=== PATIENT | female | born 1965 | race Two or more races ===

== ENCOUNTER 2025-04-18 13:02 | Inpatient (IN) | payer MEDICAID, OTHER ==
[~2025-04-18] VITALS: Ht 165.1 cm; Wt 64.0 kg
--- NOTE | 2025-04-18 13:16 | ECG ---
[facility] Test Date: 2025-04-18 Test Time: 13:11:07 Pat Name: SANTOS AVILA Department: Room: 0280 Gender: F Special Librarian: ELOINA : 1965 Requested By: DONG SANDRA Order Number: [id number] Reading MD: Matthieu Benjamin Measurements Intervals [place] Rate: 80 P: 14 CT: 128 QRS: 27 QRSD: 80 T: 45 QT: 348 QTc: 402 Interpretive Statements Sinus rhythm Electronically Signed On 04-19-2025 13:55:40 PST by Matthieu Benjamin Please click the below link to view image of tracing.
[2025-04-18 13:43] LABS: Hematocrit 40.9 % (36.0-46.0); Hemoglobin 14.2 g/dL (12.2-16.2); Mean Corpuscular Hemoglobin 28.7 pg (28.0-32.0); Mean Corpuscular Volume 82.9 fL (80.0-100.0); Nucleated Red Blood Cells % 0.1 %
--- NOTE | 2025-04-18 13:48 | DVH ---
CHEST RADIOGRAPH Indication: cp Technique: Single frontal view of the chest was obtained Comparison: None FINDINGS: Lines and Tubes: None Lungs: No focal consolidation. Pleura: No effusion. No pneumothorax. Cardiomediastinal contours: Unremarkable Bones: No acute osseous abnormality. IMPRESSION: 1. No acute cardiopulmonary disease.
[2025-04-18] MEDS: NITROGLYCERIN 0.4 MG SL TAB SL ONE ×2 (13:50→13:57)
--- NOTE | 2025-04-18 13:51 | ED.PDOC ---
HPI Comments HPI: 60F presents to the ER w/ the c/c of right sided CP which is tender to touch. Pt reports on having the CP for 1 month and worsens w/ movement of the RUE. Denies any other symptoms at this time. Initial Vitals BP:217/104 Past Medical history: HTN-Stopped taking Meds Past Surgical history: Cholecystectomy Medications: Social History: Denies smoking, ETOH, and drug use. Allergies: NKDA HPI: Poor Historian. Right-sided chest wall pain radiating to the right shoulder. Pain with movement of right upper extremity. Tenderness to palpation on the right anterior chest wall and right shoulder. Denies any fall or trauma or injury. Pain is constant for at least one month. Patient has been taking ibuprofen for her pain. Denies any other associated symptoms. Patient is hypertensive here in the ED but states she stopped taking her blood pressure medications awhile ago. REVIEW OF SYSTEMS: CONSTITUTIONAL: Denies acute: fever, diaphoresis, chills, generalized weakness. HEAD: Denies acute: headache, photophobia Eyes: Denies acute: Double vision, vision loss, eye pain, eye discharge. EARS: Denies acute: tinnitus, hearing loss, ear discharge, ear pain, THROAT: Denies acute: sore throat, swelling, difficulty swallowing , pain with swallowing, change in voice. NECK: Denies acute: neck pain, neck swelling, stiff neck. HEART: Denies acute : palpitations, LUNGS: Denies acute: SOB, wheezing, cough, hemoptysis ABDOMEN: Denies acute: abdominal pain, Nausea, Vomiting, diarrhea, melena , hematemesis, hematochezia SKIN: Denies acute: rash, redness, lesions, itchiness. EXTREMITIES: Denies acute: calf pain, numbness, tingling, weakness, denies pain in extremity. Denies acute: Low back pain. Neuro: Denies acute: focal neurological deficit, motor or sensory focal neurological deficit, tremors, seizure like activity, confusion, dizziness, change in mental status, loss of bowel or bladder function, cauda equina like symptoms. : Denies acute: dysuria, hematuria, flank pain, increase in urinary frequency. PSYCH: Denies acute: hallucination, suicidal ideation, homicidal ideation. FEMALE: Denies acute: abnormal vaginal bleeding, foul odor, unusual discharge. PHYSICAL EXAM: General: ------moderate--acute distress, awake and alert. Head: normocephalic, atraumatic. No raccoon's eyes, no cope sign. Neck: supple, trachea is midline, no swelling. Throat: Normal phonation. Eyes:, no erythema, no purulent discharge, no proptosis, no icterus. Heart: regular rate, regular rhythm, no significant murmur appreciated. Lungs: no apparent respiratory distress, Able to speak in full sentences. No wheezing, no rhonchi, no crackles. No stridors Clear to auscultation bilaterally. Abdomen: non tender to palpation, non distended, soft, no guarding, no rebound, + bowel sounds. Neuro: Awake, Alert, oriented to name, self, situation, follows commands GCS=15. Speech is normal. Skin: no petechia, no purpura, no cyanosis, non-pale, not jaundice. Lower extremities: --no - Pitting edema no deformity, no focal swelling, no calf TTP. Makes eye contact. moves all four extremities. Face: no apparent facial droop. No CVA tenderness to percussion bilaterally. Ambulating in the ED independently. Ears: Normal appearing TM b/l, Stroke: finger to nose cerebellar testing is intact. No pronator drift. 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 No nystagmus. No nuchal rigidity, Kernig's sign, Brudzinski's sign, no meningeal signs. ED COURSE: DISCLAIMER: This medical document was created using an electronic medical record system with voice recognition software and computerized dictation system. Although this document has been carefully reviewed, there might still be some phonetic and typographical errors. Occasional wrong-word or "sound-alike" substitutions may have occurred due to the inherent limitations of voice recognition software. These areas are purely typographical due to imperfections of the software programs and do not reflect any compromise in the patient's medical care. Please read the chart carefully and recognize, using context, where these substitutions have occurred. Chief Complaint: Chest Pain Time Seen by MD: 13:50 Primary Care Provider: SUSAN Reviewed Notes: Nurses Notes, Medications, Allergies Allergies: Coded Allergies: NO KNOWN ALLERGIES (Unverified , 07/07/12) Home Meds No Active Prescriptions or Reported Meds Information Source: Patient Mode of Arrival: Ambulatory Was a procedure done? Was a procedure done?: No CP Differential Dx Differential Diagnosis: N/A Differential Diagnosis: Other (DDX include renal disease, thyroid disease, electrolyte abnormality, increased salt intake, medications non-compliance, undiagnosed HTN, Hypertensive crisis, hypertensive urgency., drug toxicity.) Differential Diagnosis: Other (Ddx include but not limitied to gastritis, musculoskeletal pain, radiculopathy, atypical chest pain, dissection, aneurysm, ACS, unstable angina, hiatal hernia, GERD, anxiety, costochondritis, PE, pneumothroax, neoplasm, cardiac ischemia, drug abuse, anemia.) X-Ray, Labs, Meds, VS Vital Signs Date Time Temp Pulse Resp B/P (MAP) Pulse Ox O2 Delivery O2 Flow Rate FiO2 04/18/25 14:22 109/89 04/18/25 14:20 77 109/89 04/18/25 14:15 109/89 (96) 04/18/25 14:14 74 04/18/25 14:03 97.5 74 14 217/104 (141) 97 97.5 04/18/25 13:50 217/104 04/18/25 13:30 Room Air* 0 21 04/18/25 13:11 80 04/18/25 13:10 98.1 70 15 197/113 98 98.1 Lab Test 04/18/25 14:16 04/18/25 13:17 Range/Units Troponin I High Sensitivity 47 *H 53 *H </=34 ng/L White Blood Count 5.8 4.4-10.8 10^3/uL Red Blood Count 4.94 4.0-5.20 10^6/uL Hemoglobin 14.2 12.2-16.2 g/dL Hematocrit 40.9 36.0-46.0 % Mean Corpuscular Volume 82.9 80.0-100.0 fL Mean Corpuscular Hemoglobin 28.7 28.0-32.0 pg Mean Corpuscular Hemoglobin Concent 34.6 32.0-36.0 g/dL Red Cell Distribution Width 13.6 11.8-14.3 % Platelet Count 265 140-450 10^3/uL Mean Platelet Volume 8.3 6.9-10.8 fL Neutrophils (%) (Auto) 69.5 37.0-80.0 % Lymphocytes (%) (Auto) 21.0 10.0-50.0 % Monocytes (%) (Auto) 5.0 0.0-12.0 % Eosinophils (%) (Auto) 3.8 0.0-7.0 % Basophils (%) (Auto) 0.7 0.0-2.0 % Neutrophils # (Auto) 4.0 1.6-8.6 10 ^3/uL Lymphocytes # (Auto) 1.2 0.4-5.4 10 ^3/uL Monocytes # (Auto) 0.3 0-1.3 10 ^3/uL Eosinophils # (Auto) 0.2 0-0.8 10 ^3/uL Basophils # (Auto) 0 0-0.2 10 ^3/uL Nucleated Red Blood Cells 0.1 % D-Dimer, Quantitative 0.40 0.0-0.49 mg/L FEU Sodium Level 139 136-145 mmol/L Potassium Level 4.3 3.5-5.1 mmol/L Chloride Level 104 98-107 mmol/L Carbon Dioxide Level 25 20-31 mmol/L Anion Gap 10 5-15 Blood Urea Nitrogen 14 9-23 mg/dL Creatinine 0.86 0.550-1.02 mg/dL Glomerular Filtration Rate Calc 76 >90 mL/min BUN/Creatinine Ratio 16.3 10.0-20.0 Serum Glucose 229 H 74-106 mg/dL Hemoglobin A1c 7.9 H <5.7 % A1C Calcium Level 11.2 H 8.7-10.4 mg/dL Total Bilirubin 0.6 0.2-1.0 mg/dL Aspartate Amino Transferase (AST) 29 13-40 U/L Alanine Aminotransferase (ALT) 34 7-40 U/L Alkaline Phosphatase 153 H 46-116 U/L Total Protein 7.5 5.7-8.2 g/dL Albumin 4.4 3.2-4.8 g/dL Triglycerides Level 216 H < 150 mg/dL Cholesterol Level 234 H < 200 mg/dL LDL Cholesterol 168 H < 100 mg/dL HDL Cholesterol 49 40-59 mg/dL Vitamin B12 Level 536 211-911 pg/mL Vitamin D 25-Hydroxy 29.0 L 30.0-100 ng/mL Thyroid Stimulating Hormone (TSH) 2.29 0.55-4.78 uIU/mL Current Medications Medications (Trade) Dose Ordered Sig/Jose Daniel Route Start Time Stop Time Status Last Admin Nitroglycerin (Ntrostat Sublingual) 0.4 mg ONCE ONCE SL 04/18/25 13:45 04/18/25 13:53 DC 04/18/25 13:50 Acetaminophen/ Hydrocodone Bitart (Pointblank 5/325MG Tab) 1 tab ONCE ONCE PO 04/18/25 14:15 04/18/25 14:16 DC 04/18/25 14:21 [place] [address] Ph: [phone] DIAGNOSTIC IMAGING Diagnostic Imaging Report : [id number] Signed PATIENT: SANTOS AVILA ACCT: [id number] UNIT: [id number] : 1965 LOC: ER ROOM / BED: / AGE / SEX: 60 / F ADM STATUS: REG ER SERVICE 1331 ORDERING PHYSICIAN: DONG SANDRA DO PROCEDURE(s): RSHD2 - R SHOULDER 2+ VIEW XRAY REASON: SHOULDER PAIN ORDER NUMBER(s): [id number], ACCESSION NUMBER(s): [id number] CLINICAL INDICATION: SHOULDER PAIN TECHNIQUE: 3 radiographic views of the right shoulder were obtained. Comparison: None FINDINGS/IMPRESSION: No fracture or dislocation. No radiopaque foreign bodies No soft tissue calcifications. ATED BY: KAREEN MCKAY Jr., DO DICTATED DATE/TIME: 04/18/251403 SIGNED BY: KAREEN MCKAY Jr., DO SIGNED DATE/TIME: 04/18/251403 CC: [address] [address] Ph: [phone] DIAGNOSTIC IMAGING Diagnostic Imaging Report : [id number] Signed PATIENT: SANTOS AVILA ACCT: [id number] UNIT: [id number] : 1965 LOC: ER ROOM / BED: / AGE / SEX: 60 / F ADM STATUS: REG ER SERVICE 1313 ORDERING PHYSICIAN: DONG SANDRA DO PROCEDURE(s): CXR1 - CHEST XRAY 1 VIEW REASON: cp ORDER NUMBER(s): [id number], ACCESSION NUMBER(s): [id number] CHEST RADIOGRAPH Indication: cp Technique: Single frontal view of the chest was obtained Comparison: None FINDINGS: Lines and Tubes: None Lungs: No focal consolidation. Pleura: No effusion. No pneumothorax. Cardiomediastinal contours: Unremarkable Bones: No acute osseous abnormality. IMPRESSION: 1. No acute cardiopulmonary disease. ATED BY: KAREEN MCKAY Jr., DO DICTATED DATE/TIME: 04/18/251344 SIGNED BY: KAREEN MCKAY Jr., SIGNED DATE/TIME: 04/18/251344 CC: [place] [address] Ph: [phone] DIAGNOSTIC IMAGING Diagnostic Imaging Report : [id number] Signed PATIENT: SANTOS AVILA ACCT: [id number] UNIT: [id number] : 1965 LOC: OVERFLOW ROOM / BED: [facility]ER / A AGE / SEX: 60 / F ADM STATUS: ADM IN SERVICE 1509 ORDERING PHYSICIAN: DONG SANDRA DO PROCEDURE(s): CX2CT - CHEST WITHOUT CONTRAST REASON: R CHEST WALL/SHOULDER PAIN ORDER NUMBER(s): [id number], ACCESSION NUMBER(s): [id number] EXAM: CT CHEST WITHOUT CONTRAST INDICATION: R CHEST WALL/SHOULDER PAIN TECHNIQUE: Noncontrast axial images of the chest have been obtained along with coronal and sagittal reformatted images. All CT scans at this facility use dose modulation, iterative reconstruction, and/or weight based dosing when appropriate to reduce radiation dose to as low as reasonably achievable. COMPARISON: XY CHEST XRAY 1 VIEW on DOS: 04/18/25 FINDINGS: LOWER NECK: Unremarkable LYMPH NODES/MEDIASTINUM: No abnormal lymph nodes by CT size criteria CARDIOVASCULAR: Normal cardiac size. No pericardial effusion. No aneurysmal dilatation of the great vessels. No significant coronary artery calcifications. UPPER ABDOMEN: Benign-appearing cysts of the liver with the largest measuring up to 7.2 cm. Imaging finding may be related to hepatic versus biliary cysts. Gallbladder is surgically absent. MUSCULOSKELETAL: No acute fracture or aggressive focal osseous lesion. CHEST WALL: Unremarkable. LUNG PARENCHYMA/PLEURAL SPACE: No pleural effusion or pneumothorax. No consolidation, suspicious focal airspace opacity, or suspicious nodules.benign calcific granulomas IMPRESSION: 1. No CT evidence of an acute intrathoracic process. tinnitus CT evidence of an acute rib fracture. No definitive visualized right shoulder effusion. 2. Benign-appearing cysts of the liver with the largest measuring up to 7.2 cm. Imaging finding may be related to hepatic versus biliary cysts. Consider further evaluation with nonemergent MRI of the liver if clinically indicated ATED BY: SHILO ESTES MD DICTATED DATE/TIME: 04/18/251610 SIGNED BY: SHILO ESTES MD SIGNED DATE/TIME: 04/18/251610 CC: Time of 1ST Reevaluation: 14:20 Reevaluation 1ST: Unchanged Patient Education/Counseling: Diagnosis, Treatment, Prognosis Family Education/Counseling: No Family Present Comments MDM: patient presented with the above HPI.---cardiac---workup was initiated. patient was found with the above mentioned diagnosis. the following medications were ordered: please refer to order lists of meds and tests obtained by myself Dr. Sandra. Patient ED course and VS have been stabilized. Patient has been reassessed in the ED and remained in a stable condition. Pertinent incidental findings were discussed with the patient and/or family. Patient/family voices understanding and is agreeable with plan. Patient has been observed in the ED adequate length of time to insure improvement/stability. Escalation of care considered: Consideration of escalation to observation or admission Presentation is more consistent with musculoskeletal like pain however patient's troponin is slightly elevated the setting of hypertensive crisis not on medicati ons. Patient was ADMITTED to the medicine team for further evaluation and treatment of their presentation. All the reports of any imaging studies that were ordered by myself were reviewed by myself. SEPSIS Sepsis Screen Date sepsis recognized/suspect: Apr 18, 2025 Time Sepsis recognized/suspect: 1310 Recent Procedure: No On Antibiotic Therapy: No Respiratory Rate >20: No Heart Rate >90: No Temp<36 C (96.8 F) or >38.3 C: No SBP <90 or MAP <65 mmHG: No New Acute Mental Status Change: No Is the patient on CPAP, BIPAP,: No Physician Orders Troponin-I Hs (04/18/25 16:13) Electrocardigram (04/18/25 16:13) Chest Xray 1 View (04/18/25 13:13) R Shoulder 2+ View Xray (04/18/25 13:31) Chest Without Contrast (04/18/25 15:09) Vital Signs Date Time Temp Pulse Resp B/P (MAP) Pulse Ox O2 Delivery O2 Flow Rate FiO2 04/18/25 14:22 109/89 04/18/25 14:20 77 109/89 04/18/25 14:15 109/89 (96) 04/18/25 14:14 74 04/18/25 14:03 97.5 74 14 217/104 (141) 97 97.5 04/18/25 13:50 217/104 04/18/25 13:30 Room Air* 0 21 04/18/25 13:11 80 04/18/25 13:10 98.1 70 15 197/113 98 98.1 Laboratory Tests Test 04/18/25 13:17 White Blood Count 5.8 10^3/uL (4.4-10.8) Medications Medications Dose Ordered Sig/Jose Daniel Route Start Time Stop Time Status Last Admin Dose Admin Acetaminophen/ Hydrocodone Bitart 1 tab ONCE ONCE PO 04/18/25 14:15 04/18/25 14:16 DC 04/18/25 14:21 Nitroglycerin 0.4 mg ONCE ONCE SL 04/18/25 13:45 04/18/25 13:53 DC 04/18/25 13:50 Departure 1 Departure Time of Disposition: 14:23 Impression: Primary Impression: Chest pain Additional Impressions: Hypertensive crisis Elevated troponin Disposition: ADMITTED INPATIENT Admit to: Tele Condition: Guarded e-Prescriptions No Active Prescriptions or Reported Meds Discharged With: Self Critical Care Note Critical Care Time?: Yes (35 min-critical care time only) Heart Score Heart Score: Heart Score Response (Comments) Value History Moderate Suspicious 1 EKG Normal 0 Age 45-64 1 Risk Factors 1 or 2 risk factors 1 Troponin 1-2 x's Normal limit 1 Total 4 I personally scribed for DONG SANDRA DO ([email or web address]) on 04/18/25 at 13:51. Electronically submitted by Martínez Troy ([email or web address]). I personally scribed for DONG SANDRA DO ([facility] on 04/18/25 at 14:44. Electronically submitted by Martínez Troy ([email or web address]). I personally scribed for DONG SANDRA DO ([facility] on 04/18/25 at 16:55. Electronically submitted by Martínez Troy ([email or web address]). DONG SANDRA DO Apr 18, 2025 13:51
[2025-04-18 13:57] LABS: Alanine Aminotransferase 34 U/L (7-40); Albumin 4.4 g/dL (3.2-4.8); Anion Gap 10 (5-15); BUN/Creatinine Ratio 16.3 (10.0-20.0); Bilirubin, Total 0.6 mg/dL (0.2-1.0); Blood Urea Nitrogen 14 mg/dL (9-23); Carbon Dioxide 25 mmol/L (20-31); Chloride 104 mmol/L (98-107); Potassium 4.3 mmol/L (3.5-5.1); Sodium 139 mmol/L (136-145); Total Protein 7.5 g/dL (5.7-8.2)
[2025-04-18 13:58] LABS: Alkaline Phosphatase 153 U/L (46-116); Calcium 11.2 mg/dL (8.7-10.4); Glucose 229 mg/dL (74-106)
--- NOTE | 2025-04-18 14:06 | DVH ---
CLINICAL INDICATION: SHOULDER PAIN TECHNIQUE: 3 radiographic views of the right shoulder were obtained. Comparison: None FINDINGS/IMPRESSION: No fracture or dislocation. No radiopaque foreign bodies No soft tissue calcifications.
[2025-04-18] MEDS: LABETALOL HCL 20 MG/4 ML VL IV ONE (14:20)
[2025-04-18] MEDS: HYDROcodone-ACET 5/325MG TAB PO ONE (14:21)
--- NOTE | 2025-04-18 16:03 | DVHHPRES ---
History of Present Illness Resident Creating Document: LUCIEN BENNETT RESIDENT History of Present Illness This is a 60-year-old female with past medical history of hypertension, type 2 diabetes, dyslipidemia, who presented to the ED with a chief complaint of acute chest pain. Patient reports that the chest pain is located in the right side of the chest radiating to the right shoulder with inability to abduct the right arm above 45 degree angle. Patient also reports associated shortness of breaths that started after the chest pain. Patient stated chest pain has been going on for the past month and that comes and goes even at rest. Patient rates the pain as 10/10 on the pain scale and described the as a pressure type of pain in the right side of the chest and occasionally burning sensation as well. Initial labs were grossly unremarkable except for troponins which were slightly elevated and blood glucose was elevated as well. EKG on admission showed normal sinus rhythm with no ST segment elevation or depression and no T-wave abnormalities. Chest x-ray was grossly unremarkable with no evidence of clear consolidations at this time. Right shoulder x-ray showed no evidence of fracture or dislocation at this time. Upon my examination, there is reproducible pain to palpation in the right side of the chest and inability to raise right arm against gravity. We will order echocardiogram and follow-up closely with the results. We will also order MRI of the right shoulder to rule out any possible rotator cuff tear/tendinopathy. Patient was started on a loading dose of aspirin, blood pressure medication with lisinopril 10 mg daily and sliding scale insulin for blood glucose control. Patient will be admitted for further assessment and management. Past medical history: Hypertension, type 2 diabetes, dyslipidemia Surgical history: Cholecystectomy Home medications: None, states she stopped all medications non time ago Social history: Denies smoking, alcohol intake or any drug consumption. Cardiovascular: HTN, hyperipidemia Endocrine: Diabetes Past Surgical History: Cholecystectomy Family History: None Smoke: No ALCOHOL: none Drugs: None Lives: with Family Review of Systems Constitutional: No: Fever, Chills, Sweats, Weakness, Malaise, Other Eyes: No: Pain, Vision change, Conjunctivae inflammation, Eyelid inflammation, Other, Redness ENT: No: Ear pain, Ear discharge, Nose pain, Nose discharge, Nose congestion, Mouth pain, Mouth swelling, Throat pain, Throat swelling, Other Respiratory: Shortness of breath, Pleuritic Pain; No: Cough, Dry, SOB with excertion, Wheezing, Hemoptysis, Sputum, Wheezing, Other Cardiovascular: Chest Pain (Right-sided chest pain and inability to elevate right shoulder.); No: Palpitations, Orthopnea, Paroxysmal Noc. Dyspnea, Edema, Lt Headedness, Other Gastrointestinal: No: Nausea, Vomiting, Abdominal Pain, Diarrhea, Constipation, Melena, Hematochezia, Other Genitourinary: No Dysuria, No Frequency, No Incontinence, No Hematuria, No Retention, No Other Musculoskeletal: other (Patient reports right-sided chest pain that is worse on palpation. Inability to raise right shoulder over 45 degree angle.); No: neck pain, shoulder pain, arm pain, back pain, hand pain, leg pain, foot pain Skin: No: Rash, Lesions, Jaundice, Bruising, Other Neurological: No: Weakness, Numbness, Incoordination, Change in speech, Confusion, Seizures, Other Allergies: Coded Allergies: NO KNOWN ALLERGIES (Unverified , 07/07/12) Medications Current Medications Medications Dose Ordered Sig/Jose Daniel Route Start Time Stop Time Status Last Admin Dose Admin Acetaminophen 650 mg Q6HP PRN PO 04/18/25 15:45 UNV Acetaminophen/ Hydrocodone Bitart 1 tab Q4HP PRN PO 04/18/25 15:45 UNV Enoxaparin Sodium 40 mg DAILY SC 04/19/25 10:00 UNV Aspirin 81 mg DAILY PO 04/19/25 10:00 UNV Pantoprazole Sodium 40 mg BID IV 04/18/25 22:00 UNV Sucralfate 1 gm TID PO 04/18/25 22:00 UNV Lisinopril 10 mg DAILY PO 04/19/25 10:00 UNV Exam Vital Signs Vital Signs Date Time Temp Pulse Resp B/P (MAP) Pulse Ox O2 Delivery O2 Flow Rate FiO2 04/18/25 14:22 109/89 04/18/25 14:20 77 04/18/25 14:03 97.5 14 97 97.5 04/18/25 13:30 Room Air* 0 21 General Appearance: Alert, Oriented X3, Cooperative, No acute distress HEENT: Atraumatic, PERRLA, EOMI, Mucous membr. moist/pink Respiratory: Clear to auscultation, Normal air movement Cardiovascular: Regular rate, Normal S1, Normal S2, No murmurs Abdominal: Normal bowel sounds, Soft, No tenderness, No hepatospenomegaly, No masses Extremities: No clubbing, No cyanosis, No edema, Normal pulses, No tenderness/swelling Skin: No rashes, No breakdown, No significant lesion Neuro: Normal gait, Normal speech, Strength at 5/5 X4 ext, Normal tone, Sensation intact, Cranial nerves 3-12 NL, Reflexes 2+ Psych/Mental Status: Mental status NL, Mood NL Labs/Xrays Labs Test 04/18/25 14:16 04/18/25 13:17 Range/Units Troponin I High Sensitivity 47 *H </=34 ng/L White Blood Count 5.8 4.4-10.8 10^3/uL Red Blood Count 4.94 4.0-5.20 10^6/uL Hemoglobin 14.2 12.2-16.2 g/dL Hematocrit 40.9 36.0-46.0 % Mean Corpuscular Volume 82.9 80.0-100.0 fL Mean Corpuscular Hemoglobin 28.7 28.0-32.0 pg Mean Corpuscular Hemoglobin Concent 34.6 32.0-36.0 g/dL Red Cell Distribution Width 13.6 11.8-14.3 % Platelet Count 265 140-450 10^3/uL Mean Platelet Volume 8.3 6.9-10.8 fL Neutrophils (%) (Auto) 69.5 37.0-80.0 % Lymphocytes (%) (Auto) 21.0 10.0-50.0 % Monocytes (%) (Auto) 5.0 0.0-12.0 % Eosinophils (%) (Auto) 3.8 0.0-7.0 % Basophils (%) (Auto) 0.7 0.0-2.0 % Neutrophils # (Auto) 4.0 1.6-8.6 10 ^3/uL Lymphocytes # (Auto) 1.2 0.4-5.4 10 ^3/uL Monocytes # (Auto) 0.3 0-1.3 10 ^3/uL Eosinophils # (Auto) 0.2 0-0.8 10 ^3/uL Basophils # (Auto) 0 0-0.2 10 ^3/uL Nucleated Red Blood Cells 0.1 % D-Dimer, Quantitative 0.40 0.0-0.49 mg/L FEU Sodium Level 139 136-145 mmol/L Potassium Level 4.3 3.5-5.1 mmol/L Chloride Level 104 98-107 mmol/L Carbon Dioxide Level 25 20-31 mmol/L Anion Gap 10 5-15 Blood Urea Nitrogen 14 9-23 mg/dL Creatinine 0.86 0.550-1.02 mg/dL Glomerular Filtration Rate Calc 76 >90 mL/min BUN/Creatinine Ratio 16.3 10.0-20.0 Serum Glucose 229 H 74-106 mg/dL Calcium Level 11.2 H 8.7-10.4 mg/dL Total Bilirubin 0.6 0.2-1.0 mg/dL Aspartate Amino Transferase (AST) 29 13-40 U/L Alanine Aminotransferase (ALT) 34 7-40 U/L Alkaline Phosphatase 153 H 46-116 U/L Total Protein 7.5 5.7-8.2 g/dL Albumin 4.4 3.2-4.8 g/dL SEPSIS Sepsis Screen Date sepsis recognized/suspect: Apr 18, 2025 Time Sepsis recognized/suspect: 1329 Recent Procedure: No On Antibiotic Therapy: No Respiratory Rate >20: No Heart Rate >90: No Temp<36 C (96.8 F) or >38.3 C: No SBP <90 or MAP <65 mmHG: No New Acute Mental Status Change: No Is the patient on CPAP, BIPAP,: No Physician Orders Troponin-I Hs (04/18/25 16:13) Electrocardigram (04/18/25 14:13) Electrocardigram (04/18/25 16:13) Chest Xray 1 View (04/18/25 13:13) R Shoulder 2+ View Xray (04/18/25 13:31) Chest Without Contrast (04/18/25 15:09) Admit (04/18/25 15:31) Code Status (04/18/25 15:31) Vital Signs .PER UNIT PROTOCOL (04/18/25 15:31) Review Orders With Adm.Md (04/18/25 15:31) Encourage Activity As Tolerate (04/18/25 15:31) Consistent Carb(Ccho)Diabetes (04/18/25 Dinner) Acetaminophen Tablet (Tylenol Tablet) (04/18/25 15:45) Notify Md Of Changes From Base (04/18/25 15:31) Advance Directive (04/18/25 15:31) Echo 2d Mode Cardiac Dop (04/18/25 15:31) Basic Metabolic Panel (04/19/25 04:00) Urinalysis (04/18/25 15:31) Complete Blood Count (04/19/25 04:00) Lipid Panel (04/18/25 15:31) Patient Condition (04/18/25 15:31) Allergies (04/18/25 15:31) Hydrocodone-Acet 5/325mg Tab ([place] 32 (04/18/25 15:45) Drug Screen (04/18/25 15:31) Hemoglobin A1c (04/18/25 15:31) Enoxaparin Sodium (Lovenox) (04/19/25 10:00) Aspirin Tablet (04/18/25 15:45) Aspirin Tablet (04/19/25 10:00) Pantoprazole (Protonix) (04/18/25 22:00) Sucralfate Tab (Carafate Tab) (04/18/25 22:00) Rt Shoulder Without (04/18/25 15:40) Lisinopril Tablet (Zestril Tablet) (04/18/25 15:45) Lisinopril Tablet (Zestril Tablet) (04/19/25 10:00) Thyroid Stimulating Hormone (04/18/25 15:43) Vitamin D, 25-Hydroxy (04/18/25 15:43) Vitamin B12 (04/18/25 15:43) Vital Signs Date Time Temp Pulse Resp B/P (MAP) Pulse Ox O2 Delivery O2 Flow Rate FiO2 04/18/25 14:22 109/89 04/18/25 14:20 77 109/89 04/18/25 14:15 109/89 (96) 04/18/25 14:14 74 04/18/25 14:03 97.5 74 14 217/104 (141) 97 97.5 04/18/25 13:50 217/104 04/18/25 13:30 Room Air* 0 21 04/18/25 13:11 80 04/18/25 13:10 98.1 70 15 197/113 98 98.1 Laboratory Tests Test 04/18/25 13:17 White Blood Count 5.8 10^3/uL (4.4-10.8) Medications Medications Dose Ordered Sig/Jose Daniel Route Start Time Stop Time Status Last Admin Dose Admin Acetaminophen/ Hydrocodone Bitart 1 tab ONCE ONCE PO 04/18/25 14:15 04/18/25 14:16 DC 04/18/25 14:21 1 TAB Nitroglycerin 0.4 mg ONCE ONCE SL 04/18/25 13:45 04/18/25 13:53 DC 04/18/25 13:50 0.4 MG Assessment/Plan Assessment/Plan Assessment/plan Hypertensive emergency Acute chest pain, R/O ACS Possible musculoskeletal type of pain NSTEMI likely type 2 likely due to above Uncontrolled type 2 diabetes mellitus Primary hypertension Dyslipidemia Acute on chronic GERD Plan -EKG showed normal sinus rhythm with no ST segment elevation or depression or T- waves abnormalities -troponins were slightly elevated -blood pressure on admission was over 200 systolic blood pressure. Currently controlled -start lisinopril 10 mg daily -ordered echocardiogram -right shoulder x-ray showing no evidence of dislocation or fracture at this time. -ordered MRI of the right shoulder to rule out possible rotator cuff tear/tendinopathy -started pantoprazole IV 40 mg b.i.d. -start Carafate 1 g t.i.d. -ordered hemoglobin A1c -ordered lipid panel. We will consider start statins depending on results. -start mild sliding scale insulin, we will consider starting Lantus depending on A1c levels Goals of care discussed with the patient at bedside, full code Plan discussed with Dr. Blanc Plan discussed with: Patient My Orders Orders - LUCIEN BENNETT RESIDENT Procedure Category Date Status Time Admit ADMIT 04/18/25 Transmitted 15:31 Code Status CODE 04/18/25 Transmitted 15:31 Vital Signs PER 04/18/25 In Process 15:31 Review Orders With PER 04/18/25 In Process Adm. 15:31 Encourage Activity As PER 04/18/25 In Process Tolerate 15:31 Consistent DIET 04/18/25 Transmitted Carb(Ccho)Diabetes Dinner Acetaminophen Tablet PHA 04/18/25 Logged (Tylenol Tablet) 15:45 Notify Of Changes PER 04/18/25 In Process From Base 15:31 Advance Directive PER 04/18/25 In Process 15:31 Echo 2d Mode Cardiac US 04/18/25 Logged DOP 15:31 Basic Metabolic Panel LAB 04/19/25 Verified 04:00 Urinalysis LAB 04/18/25 Logged 15:31 Complete Blood Count LAB 04/19/25 Verified 04:00 Lipid Panel LAB 04/18/25 Logged 15:31 Patient Condition ORDERS 04/18/25 Transmitted 15:31 Allergies PER 04/18/25 In Process 15:31 Hydrocodone-Acet PHA 04/18/25 Logged 5/325mg Tab ([place] 15:45 Drug Screen LAB 04/18/25 Logged 15:31 Hemoglobin A1c LAB 04/18/25 Logged 15:31 Enoxaparin Sodium PHA 04/19/25 Logged (Lovenox) 10:00 Aspirin Tablet PHA 04/18/25 Logged 15:45 Aspirin Tablet PHA 04/19/25 Logged 10:00 Pantoprazole PHA 04/18/25 Logged (Protonix) 22:00 Sucralfate Tab PHA 04/18/25 Logged (Carafate Tab) 22:00 Rt Shoulder Without MRI 04/18/25 Logged 15:40 Lisinopril Tablet PHA 04/18/25 Logged (Zestril Tablet) 15:45 Lisinopril Tablet PHA 04/19/25 Logged (Zestril Tablet) 10:00 Thyroid Stimulating LAB 04/18/25 Logged Hormone 15:43 Vitamin D, 25-Hydroxy LAB 04/18/25 Logged 15:43 Vitamin B12 LAB 04/18/25 Logged 15:43 LUCIEN BENNETT RESIDENT Apr 18, 2025 16:03
[2025-04-18] MEDS: LISINOPRIL 5 MG TAB PO ONE (16:07)
--- NOTE | 2025-04-18 16:12 | ECG ---
[facility] Test Date: 2025-04-18 Test Time: 16:07:52 Pat Name: SANTOS AVILA Department: [facility] ED Patient ID: [id number] Room: 0280 Gender: F Flight Coordinator: kiko : 1965 Requested By: DONG SANDRA Order Number: [id number] Reading MD: Matthieu Benjamin Measurements Intervals [place] Rate: 61 P: 19 CT: 134 QRS: 23 QRSD: 86 T: 15 QT: 407 QTc: 410 Interpretive Statements Sinus rhythm Borderline T wave abnormalities Electronically Signed On 04-19-2025 13:56:09 PST by Matthieu Benjamin Please click the below link to view image of tracing.
--- NOTE | 2025-04-18 16:14 | DVH ---
EXAM: CT CHEST WITHOUT CONTRAST INDICATION: R CHEST WALL/SHOULDER PAIN TECHNIQUE: Noncontrast axial images of the chest have been obtained along with coronal and sagittal r eformatted images. All CT scans at this facility use dose modulation, iterative reconstruction, and/o r weight based dosing when appropriate to reduce radiation dose to as low as reasonably achievable. COMPARISON: XY CHEST XRAY 1 VIEW on DOS: 04/18/25 FINDINGS: LOWER NECK: Unremarkable LYMPH NODES/MEDIASTINUM: No abnormal lymph nodes by CT size criteria CARDIOVASCULAR: Normal cardiac size. No pericardial effusion. No aneurysmal dilatation of the great v essels. No significant coronary artery calcifications. UPPER ABDOMEN: Benign-appearing cysts of the liver with the largest measuring up to 7.2 cm. Imaging f inding may be related to hepatic versus biliary cysts. Gallbladder is surgically absent. MUSCULOSKELETAL: No acute fracture or aggressive focal osseous lesion. CHEST WALL: Unremarkable. LUNG PARENCHYMA/PLEURAL SPACE: No pleural effusion or pneumothorax. No consolidation, suspicious foca l airspace opacity, or suspicious nodules.benign calcific granulomas IMPRESSION: 1. No CT evidence of an acute intrathoracic process. tinnitus CT evidence of an acute rib fracture. N o definitive visualized right shoulder effusion. 2. Benign-appearing cysts of the liver with the largest measuring up to 7.2 cm. Imaging finding may b e related to hepatic versus biliary cysts. Consider further evaluation with nonemergent MRI of the li da if clinically indicated
[2025-04-18 16:28] LABS: HDL Cholesterol 49 mg/dL (40-59)
[2025-04-18 16:38] LABS: Cholesterol 234 mg/dL (< 200); Triglycerides 216 mg/dL (< 150)
[2025-04-18] MEDS: SUCRALFATE 1 GM TAB PO SCH (17:24)
[2025-04-18] MEDS: HYDROcodone-ACET 5/325MG TAB PO PRN (17:24)
[2025-04-18 17:45] VITALS: BP 220/127; PULSE 64; RESP 16; TEMP 98.7; O2SAT 100
[2025-04-18 18:43] VITALS: BP 177/107
[2025-04-18 20:00] VITALS: RESP 18; O2SAT 95
[2025-04-18 21:00] VITALS: BP 136/85; PULSE 65; RESP 17; TEMP 97.7; O2SAT 96
--- NOTE | 2025-04-18 21:22 | DVHSR ---
APPROVED REPORT EXAM: Two-dimensional and M-mode echocardiogram with Doppler and color Doppler. Blood Pressure: 109/89 mmHg INDICATION R/O contraccion abn Eval LVEF RISK FACTORS Height: 5'2", Weight: 121 DIMENSIONS LVDd4.2 (3.8-5.7cm)LA (2D)3.2 (1.9-4.0cm)Aortic Root2.9 (2.0-3.7cm) LVDs2.8 (2.5-4.0cm)LA (MM) (1.9-4.0cm)Aortic Cusp Exc1.8 (1.5-2.0cm) EF (%) 60.0 (55-70%)Rt. Atrium3.1 (1.9-4.0cm)Asc. Aorta cm IVSd1.0 (0.7-1.1cm)RV (D) (1.8-2.4cm) PWd1.0 (0.7-1.1cm) Mitral Valve MitralMitral Stenosis E wave0.48m/sMV Mean GR.mmHg A wave0.56m/sMV Peak GR.mmHg E/A ratio0.92D MVAcm2 DECEL [id number] 1/2 [place] Aortic Valve Aortic ValveAortic Stenosis V10.72m/[place] Mean GR.4mmHg V21.32m/[place] Peak GR.7mmHg LVOT Diameter2.0 (1.8-2.4cm)Doppler AVA1.71cm2 Pulmonic Valve V20.90m/s Tricuspid Valve TR Velocity2.76m/s [id number] Conclusion MODERATELY DILATED RV AND RA MILD LVH AND MILD LV DIASTOLIC DYSFUNCTION LV EF IS 65% NORMAL VALVES NO EFFUSION
[2025-04-18] MEDS: PANTOPRAZOLE 40 MG/10 ML VIAL INJ IV SCH (21:26)
[2025-04-19] VITALS (8 sets, daily range): BP systolic 113–164; BP diastolic 59–96; PULSE 51–64; RESP 17–20; TEMP 97.3–98.1; O2SAT 95–99
[2025-04-19] MEDS: HYDROmorphone HCL 2 MG/ML VL/or syr IV ONE (02:01)
[2025-04-19 02:48] LABS: Urine Protein, UAD Negative (Negative)
[2025-04-19 05:18] LABS: Amphetamine Screen, Urine Neg (NEGATIVE); Barbiturate Scree,Urine Neg (NEGATIVE); Benzodiazephine Screen, Urine Neg (NEGATIVE); Cannabinoid Screen, Urine Neg (NEGATIVE); Cocaine Screen, Urine Neg (NEGATIVE); Opiate Scree,Urine Pos (NEGATIVE); Phencyclidine Screen, Urine Neg (NEGATIVE)
[2025-04-19 06:40] LABS: Chloride 102 mmol/L (98-107); Potassium 4.5 mmol/L (3.5-5.1); Sodium 137 mmol/L (136-145)
[2025-04-19 06:41] LABS: Anion Gap 7 (5-15); Carbon Dioxide 28 mmol/L (20-31)
[2025-04-19 06:47] LABS: BUN/Creatinine Ratio 16.9 (10.0-20.0); Blood Urea Nitrogen 14 mg/dL (9-23)
[2025-04-19 06:52] LABS: Calcium 10.7 mg/dL (8.7-10.4); Glucose 186 mg/dL (74-106)
[2025-04-19 07:06] LABS: Hematocrit 37.3 % (36.0-46.0); Hemoglobin 12.7 g/dL (12.2-16.2); Mean Corpuscular Hemoglobin 28.4 pg (28.0-32.0); Mean Corpuscular Volume 83.6 fL (80.0-100.0); Nucleated Red Blood Cells % 0.1 %
--- NOTE | 2025-04-19 07:34 | ECG ---
[facility] Test Date: 2025-04-18 Test Time: 22:01:27 Pat Name: SANTOS AVILA Department: Room: 0280 A Gender: F Child Protective Investigator: NELDA : 1965 Requested By: LUCIEN JUAREZ Order Number: [id number] Reading MD: Matthieu Benjamin Measurements Intervals [place] Rate: 59 P: -9 CT: 131 QRS: 25 QRSD: 84 T: 27 QT: 418 QTc: 414 Interpretive Statements Sinus rhythm Electronically Signed On 04-19-2025 13:10:27 PST by Matthieu Benjamin Please click the below link to view image of tracing.
[2025-04-19] MEDS: hydrALAZINE HCL 20 MG/ML VL IV PRN (10:19)
--- NOTE | 2025-04-19 10:36 | DVHPNRES ---
Progress Note Date Seen: Apr 19, 2025 Resident Creating Document: CLARIBEL CAAL RESIDENT Has the PT tested + for MRSA If YES, has PT been informed?: No Medical Necessity Reason Pt with a Central, PICC or Fol: No Subjective Review of Systems Ragini Gaytan is a 60-year-old female with past medical history of hypertension, type 2 diabetes, dyslipidemia, who presented to the ED with a chief complaint of acute chest pain. Patient reports that the chest pain is located in the right side of the chest radiating to the right shoulder with inability to abduct the right arm above 45 degree angle. Patient also reports associated shortness of breaths that started after the chest pain. Patient stated chest pain has been going on for the past month and that comes and goes even at rest. Patient rates the pain as 10/10 on the pain scale and described the as a pressure type of pain in the right side of the chest and occasionally burning sensation as well. Initial labs were grossly unremarkable except for troponins which were slightly elevated and blood glucose was elevated as well. EKG on admission showed normal sinus rhythm with no ST segment elevation or depression and no T-wave abnormalities. Chest x-ray was grossly unremarkable with no evidence of clear consolidations at this time. Right shoulder x-ray showed no evidence of fracture or dislocation at this time. Upon my examination, there is reproducible pain to palpation in the right side of the chest and inability to raise right arm against gravity. We will order echocardiogram and follow-up closely with the results. We will also order MRI of the right shoulder to rule out any possible rotator cuff tear/tendinopathy. Patient was started on a loading dose of aspirin, blood pressure medication with lisinopril 10 mg daily and sliding scale insulin for blood glucose control. Patient will be admitted for further assessment and management. Past medical history: Hypertension, type 2 diabetes, dyslipidemia Surgical history: Cholecystectomy Home medications: None, states she stopped all medications non time ago Social history: Denies smoking, alcohol intake or any drug consumption. Lives: with Family On 04/19/25, the patient was examined and evaluated at bedside, the patient reports she is has right chest pain, irradiated to the right shoulder 4/10. VS, chart and labs were reviewed. Troponins are trending down to 42. A new MRI of right shoulder showed:Glenohumeral joint: There is no fracture or bone marrow edema. Alignment is maintained. High-grade articular cartilage loss is present in the humeral head. There is glenohumeral joint effusion without synovitis. Acromioclavicular joint: The acromioclavicular joint is narrowed with capsular hypertrophy. Type 1 acromion noted. Rotator cuff and bursae: There is a full-thickness, full width tear supraspinatus with retraction of the tendon to the myotendinous junction. There is severe infraspinatus tendinosis and interstitial tear near the myotendinous junction. Moderate subscapularis tendinosis is noted. Teres minor tendon appears to be intact. There is no regional muscle atrophy. Fluid decompresses into the subacromial subdeltoid bursa from the glenohumeral joint through the full-thickness rotator cuff tear. There is mild decreased bulk in the supraspinatus muscle. Biceps tendon and glenoid labrum: The long head biceps tendon is torn and displaced from the bicipital groove with fluid in the bicipital groove.The labrum is completely degenerated and chronically torn. A orthopedic consult was placed. The pain is managed with analgesia and cold pack. A arm sling was requested. We will continue following up this patient progress. ROS: Constitutional: No: Fever, Chills, Sweats, Weakness, Malaise, Other Eyes: No: Pain, Vision change, Conjunctivae inflammation, Eyelid inflammation, Other, Redness ENT: No: Ear pain, Ear discharge, Nose pain, Nose discharge, Nose congestion, Mouth pain, Mouth swelling, Throat pain, Throat swelling, Other Respiratory: Shortness of breath, Pleuritic Pain; No: Cough, Dry, SOB with excertion, Wheezing, Hemoptysis, Sputum, Wheezing, Other Cardiovascular: Chest Pain (Right-sided chest pain and inability to elevate right shoulder.); No: Palpitations, Orthopnea, Paroxysmal Noc. Dyspnea, Edema, Lt Headedness, Other Gastrointestinal: No: Nausea, Vomiting, Abdominal Pain, Diarrhea, Constipation, Melena, Hematochezia, Other Genitourinary: No Dysuria, No Frequency, No Incontinence, No Hematuria, No Retention, No Other Musculoskeletal: Right shoulder pain, inability to abduct the arm above the head. No: neck pain, back pain, hand pain, leg pain, foot pain Skin: No: Rash, Lesions, Jaundice, Bruising, Other Neurological: tingling sensation on right shoulder. No: Weakness, Numbness, Incoordination, Change in speech, Confusion, Seizures, Other Allergies: no known allergies. Objective vital signs Vital Sign Date Time Temp Pulse Resp B/P (MAP) Pulse Ox O2 Delivery O2 Flow Rate FiO2 04/19/25 09:00 98.0 54 20 164/96 (118) 97 98.0 04/18/25 20:00 Nasal Cannula* 2 28 Total Intake and Output 04/18/25 04/18/25 04/19/25 15:00 23:00 07:00 Intake Total 1025 ml Balance 1025 ml medications Current Medications Medications Dose Ordered Sig/Jose Daniel Route Start Time Stop Time Status Last Admin Dose Admin Acetaminophen 650 mg Q6HP PRN PO 04/18/25 15:45 Acetaminophen/ Hydrocodone Bitart 1 tab Q4HP PRN PO 04/18/25 15:45 04/18/25 21:30 1 TAB Enoxaparin Sodium 40 mg DAILY SC 04/19/25 10:00 Aspirin 81 mg DAILY PO 04/19/25 10:00 Pantoprazole Sodium 40 mg BID IV 04/18/25 22:00 04/18/25 21:26 40 MG Sucralfate 1 gm TIDAC PO 04/18/25 17:00 04/19/25 06:48 1 GM Lisinopril 10 mg DAILY PO 04/19/25 10:00 Hydralazine HCl 10 mg Q6HP PRN IV 04/18/25 18:45 Examination General Appearance: Alert, Oriented X3, Cooperative, No acute distress HEENT: Atraumatic, PERRLA, EOMI, Mucous membr. moist/pink Respiratory: Clear to auscultation, Normal air movement Cardiovascular: Regular rate, Normal S1, Normal S2, No murmurs. Pain on palpation of right chest area. Abdominal: Normal bowel sounds, Soft, No tenderness, No hepatospenomegaly, No masses Extremities: Right arm: edema over right shoulder, tender to palpation, ROM limited by pain, empty can test positive. Patient cannot abduct or elevate the right arm more than 90 degrees. No clubbing, No cyanosis, Normal pulses. Skin: No rashes, No breakdown, No significant lesion Neuro: Normal gait, Normal speech, Strength at 5/5 X4 ext, Normal tone, Sensation intact, Cranial nerves 3-12 NL, Reflexes 2+ Psych/Mental Status: Mental status NL, Mood NL laboratory and microbiology Laboratory Tests 04/19/25 04:48 Test 04/19/25 04:48 Range/Units Serum Glucose 186 H 74-106 mg/dL Problem List/Assessment/Plan Problem List/Assessment/Plan #Hypertensive emergency #Acute chest pain, R/O ACS #Possible musculoskeletal type of pain #NSTEMI likely type 2 likely due to above -EKG showed normal sinus rhythm with no ST segment elevation or depression or T- waves abnormalities troponins were slightly elevated blood pressure on admission was over 200 systolic blood pressure. Currently controlled start lisinopril 10 mg daily ordered echocardiogram #Right arm pain possible due to rotator cuff tear #Right acute rotator cuff tear -right shoulder x-ray showing no evidence of dislocation or fracture at this time. -ordered MRI of the right shoulder to rule out possible rotator cuff tear/tendinopathy -MRI showed:There is severe infraspinatus tendinosis and interstitial tear near the myotendinous junction. Moderate subscapularis tendinosis is noted. 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 Carafate 1 g t.i.d. DVT prophylaxis: Lovenox subcutaneous Diet: Cardiac diet Goals of care discussed with the patient for more than 35 minutes: Code Status: Full code PCP: Dr. Negra Vallecillo Case discussed with Dr. Blanc Plan discussed with: Patient Date of Service: Apr 19, 2025 Billing Provider: PEDRO BHAT MD Common Visit Codes: [id number] INP/OBS CARE(HIGH) CLARIBEL CAAL RESIDENT Apr 19, 2025 10:36
[2025-04-19] MEDS: ENOXAPARIN SOD 40 MG/0.4 ML SYRINGE SC SCH (11:19)
[2025-04-19] MEDS: LISINOPRIL 5 MG TAB PO SCH (11:20)
[2025-04-19] MEDS: ONDANSETRON HCL 4 MG/2 ML VIAL IV PRN (11:44)
[2025-04-19] MEDS: HYDROmorphone HCL 2 MG/ML VL/or syr IV PRN (11:47)
--- NOTE | 2025-04-19 12:56 | DVH ---
CLINICAL INDICATION: r/o possible rotator cuff tear/tendinopathy COMPARISON: XY R SHOULDER 2+ VIEW XRAY on DOS: 04/18/25 TECHNIQUE: Multiplanar, multisequence MRI of the right shoulder was performed without contrast. Contrast: None FINDINGS: Motion artifact limits evaluation. Glenohumeral joint: There is no fracture or bone marrow edema. Alignment is maintained. High-grade articular cartilage loss is present in the humeral head. There is glenohumeral joint effusion without synovitis. Acromioclavicular joint: The acromioclavicular joint is narrowed with capsular hypertrophy. Type 1 acromion noted. Rotator cuff and bursae: There is a full-thickness, full width tear supraspinatus with retraction of the tendon to the myotendinous junction. There is severe infraspinatus tendinosis and interstitial tear near the myotendinous junction. Moderate subscapularis tendinosis is noted. Teres minor tendon appears to be intact. There is no regional muscle atrophy. Fluid decompresses into the subacromial subdeltoid bursa from the glenohumeral joint through the full- thickness rotator cuff tear. There is mild decreased bulk in the supraspinatus muscle. Biceps tendon and glenoid labrum: The long head biceps tendon is torn and displaced from the bicipital groove with fluid in the bicipital groove. The labrum is completely degenerated and chronically torn. IMPRESSION: 1. Motion degraded study. 2. Full-thickness full width supraspinatus tear with retraction of the tendon to the myotendinous junction in the right shoulder. Mild decreased supraspinatus muscle bulk. 3. Severe infraspinatus tendinosis and interstitial tear near the myotendinous junction. 4. Moderate subscapularis tendinosis. 5. Tear of the long head biceps tendon with displacement from the bicipital groove. 6. Glenohumeral and acromioclavicular joint arthrosis. HS:Y
[2025-04-19] MEDS ORDERED: ACETAMINOPHEN 325 MG TAB PO PRN (13:00)
[2025-04-19] MEDS ORDERED: IBUPROFEN 600 MG TAB PO PRN (13:00)
[2025-04-19] MEDS: ACETAMINOPHEN 325 MG TAB PO PRN (15:42)
--- NOTE | 2025-04-19 19:48 | DVHINCON2 ---
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 She denies any history of injury, fall, slip, trauma, catching, locking, or instability. Pain is described as out of proportion, prompting evaluation in the Emergency Department today, where she was admitted for pain control. She denies numbness, tingling, weakness, or neck pain. No associated constitutional symptoms. Past medical history significant for diabetes mellitus. Objective (Physical Examination) General: Patient alert, oriented, in mild distress secondary to shoulder pain. Right Shoulder Examination: Inspection: No erythema, ecchymosis, or deformity noted. Palpation: Tenderness over anterolateral shoulder and bicipital groove. Range of Motion: Forward flexion and abduction markedly limited due to pain , FF 80 and Abd 80. External and internal rotation limited. Special Tests: Neer test: Positive for impingement. Maxwell test: Positive. speed positive lift off Negative Jobes (Empty Can) test: Positive for weakness and pain. OBriens test: Mildly positive for weakness and pain. Neurovascular Exam: Intact distally. Sensation intact to light touch. Pulses palpable. Imaging Review X-ray: No fracture noted RIGHT SHOULDER MRI : 1. Motion degraded study. 2. Full-thickness full width supraspinatus tear with retraction of the tendon to the myotendinous junction in the right shoulder. Mild decreased supraspinatus muscle bulk. 3. Severe infraspinatus tendinosis and interstitial tear near the myotendinous junction. 4. Moderate subscapularis tendinosis. 5. Tear of the long head biceps tendon with displacement from the bicipital groove. 6. Glenohumeral and acromioclavicular joint arthrosis. Assessment 1. Right shoulder rotator cuff tear with tendon retraction. 2. Subluxation of the long head of the biceps tendon. 3. Partial tear of the subscapularis tendon. 4. Mild glenohumeral joint osteoarthritis. 5. Diabetes mellitus. Plan Discussed surgical vs. non-surgical management with the patient. Given patient preference and diabetic comorbidity, will proceed with non- operative management at this time. May do CSI vs pain management with oral meds (per medicine team)based on random glucose results, labs ordered today. Pain control: per medicine team Ortho will followup tomorrow Plan discussed with: Patient, Other (bedside nurse) Visit Coding Surgery Date of Service if different f: Apr 19, 2025 Billing Provider: FIORELLA NORTH Surgery Visit Codes: 88853 - INP CONSULT <55 MIN FIORELLA NORTH Apr 19, 2025 19:48
[2025-04-19] MEDS: ATORVASTATIN 20 MG TAB PO SCH (22:19)
[2025-04-20] VITALS (7 sets, daily range): BP systolic 125–161; BP diastolic 74–93; PULSE 57–91; RESP 18–20; TEMP 97.7–98.6; O2SAT 96–100
[2025-04-20] MEDS: HYDROcodone-ACET 10/325MG TAB PO PRN (02:37)
[2025-04-20 07:01] LABS: Chloride 104 mmol/L (98-107); Potassium 4.0 mmol/L (3.5-5.1); Sodium 141 mmol/L (136-145)
[2025-04-20 07:02] LABS: Anion Gap 8 (5-15); Carbon Dioxide 29 mmol/L (20-31)
[2025-04-20 07:04] LABS: Hematocrit 38.6 % (36.0-46.0); Hemoglobin 13.2 g/dL (12.2-16.2); Mean Corpuscular Hemoglobin 28.4 pg (28.0-32.0); Mean Corpuscular Volume 82.9 fL (80.0-100.0); Nucleated Red Blood Cells % 0.0 %
[2025-04-20 07:07] LABS: BUN/Creatinine Ratio 12.4 (10.0-20.0); Blood Urea Nitrogen 11 mg/dL (9-23)
[2025-04-20 07:08] LABS: Calcium 11.3 mg/dL (8.7-10.4); Glucose 163 mg/dL (74-106)
--- NOTE | 2025-04-20 07:59 | ECG ---
[facility] Test Date: 2025-04-18 Test Time: 14:14:27 Pat Name: SANTOS AVILA Department: [facility] ED Patient ID: [facility]-[id number] Room: 0280 Gender: F [employer] Control Manager: kelly : 1965 Requested By: DONG SANDRA Order Number: [id number] Reading MD: Measurements Intervals [place] Rate: 74 P: 17 SC: 131 QRS: 10 QRSD: 81 T: -16 QT: 381 QTc: 423 Interpretive Statements Sinus rhythm Left ventricular hypertrophy Borderline T abnormalities, diffuse leads Please click the below link to view image of tracing.
[2025-04-20] MEDS ORDERED: ATOR40TA52 PO (11:53)
[2025-04-20] MEDS ORDERED: BLOO1KIT60 XX (11:53)
[2025-04-20] MEDS ORDERED: CEFD300C2 PO (11:53)
[2025-04-20] MEDS ORDERED: METF-490 PO (11:53)
[2025-04-20] MEDS ORDERED: ASPI81CH59 PO (11:53)
[2025-04-20] MEDS ORDERED: LISI10TA34 PO (11:53)
[2025-04-20] MEDS ORDERED: PANT40T PO (11:53)
[2025-04-20] MEDS ORDERED: LANC-347 XX (11:53)
[2025-04-20] MEDS ORDERED: IBUP-1455 PO (11:53)
--- NOTE | 2025-04-20 14:50 | DVHDSRES ---
Discharge Summary Date of Admission Resident Creating Document: CLARIBEL CAAL RESIDENT Apr 18, 2025 at 15:31 Date of Discharge: Apr 20, 2025 Admitting Diagnosis #Hypertensive emergency #Acute chest pain, possible ACS NSTEMI type 2 #Acute chest pain, possible rotator cuff injury #DM type 2 with hyperglycemia Wounds: No wounds Labs/Diagnostic Data: Laboratory Results Test 04/20/25 05:59 04/20/25 05:23 04/19/25 04:48 04/19/25 02:30 POC Glucose 192 mg/dl (70-106) White Blood Count 6.1 10^3/uL (4.4-10.8) Red Blood Count 4.65 10^6/uL (4.0-5.20) Hemoglobin 13.2 g/dL (12.2-16.2) Hematocrit 38.6 % (36.0-46.0) Mean Corpuscular Volume 82.9 fL (80.0-100.0) Mean Corpuscular Hemoglobin 28.4 pg (28.0-32.0) Mean Corpuscular Hemoglobin Concent 34.3 g/dL (32.0-36.0) Red Cell Distribution Width 13.6 % (11.8-14.3) Platelet Count 250 10^3/uL (140-450) Mean Platelet Volume 8.5 fL (6.9-10.8) Neutrophils (%) (Auto) 65.9 % (37.0-80.0) Lymphocytes (%) (Auto) 22.5 % (10.0-50.0) Monocytes (%) (Auto) 7.2 % (0.0-12.0) Eosinophils (%) (Auto) 3.7 % (0.0-7.0) Basophils (%) (Auto) 0.7 % (0.0-2.0) Neutrophils # (Auto) 4.0 10 ^3/uL (1.6-8.6) Lymphocytes # (Auto) 1.4 10 ^3/uL (0.4-5.4) Monocytes # (Auto) 0.4 10 ^3/uL (0-1.3) Eosinophils # (Auto) 0.2 10 ^3/uL (0-0.8) Basophils # (Auto) 0 10 ^3/uL (0-0.2) Nucleated Red Blood Cells 0.0 % Sodium Level 141 mmol/L (136-145) Potassium Level 4.0 mmol/L (3.5-5.1) Chloride Level 104 mmol/L (98-107) Carbon Dioxide Level 29 mmol/L (20-31) Anion Gap 8 (5-15) Blood Urea Nitrogen 11 mg/dL (9-23) Creatinine 0.89 mg/dL (0.550-1.02) Glomerular Filtration Rate Calc 73 mL/min (>90) BUN/Creatinine Ratio 12.4 (10.0-20.0) Serum Glucose 163 mg/dL (74-106) Calcium Level 11.3 mg/dL (8.7-10.4) Troponin I High Sensitivity 44 ng/L (</=34) Urine Color Yellow (Yellow) Urine Clarity Turbid (Clear) Urine pH 5.5 (5.0-9.0) Urine Specific [place] 1.023 (1.001-1.035) Urine Protein Negative (Negative) Urine Ketones Trace (Negative) Urine Blood Negative /uL (Negative) Urine Nitrite Negative (Negative) Urine Bilirubin Negative (Negative) Urine Urobilinogen 6 mg/dL (Negative) Urine Leukocyte Esterase 1+ /uL (Negative) Urine RBC 2 /hpf (0 - 4) Urine Microscopic WBC 11 /HPF (0-5) Urine Squamous Epithelial Cells Few /hpf (<5) Urine Bacteria Many /hpf (None Seen) Urine Hyaline Casts Few /lpf (0 - 2) Urine Mucus Few (None Seen) Urine Glucose 4+ mg/dL (Normal) Urine Opiates Screen Pos (NEGATIVE) Urine Fentanyl Screen Neg (NEGATIVE) Urine Barbiturates Screen Neg (NEGATIVE) Urine Phencyclidine Screen Neg (NEGATIVE) Urine Amphetamines Screen Neg (NEGATIVE) Urine Benzodiazepines Screen Neg (NEGATIVE) Urine Cocaine Screen Neg (NEGATIVE) Urine Cannabinoids Screen Neg (NEGATIVE) Test 04/18/25 13:17 D-Dimer, Quantitative 0.40 mg/L FEU (0.0-0.49) Hemoglobin A1c 7.9 % A1C (<5.7) Total Bilirubin 0.6 mg/dL (0.2-1.0) Aspartate Amino Transferase (AST) 29 U/L (13-40) Alanine Aminotransferase (ALT) 34 U/L (7-40) Alkaline Phosphatase 153 U/L (46-116) Total Protein 7.5 g/dL (5.7-8.2) Albumin 4.4 g/dL (3.2-4.8) Triglycerides Level 216 mg/dL (< 150) Cholesterol Level 234 mg/dL (< 200) LDL Cholesterol 168 mg/dL (< 100) HDL Cholesterol 49 mg/dL (40-59) Vitamin B12 Level 536 pg/mL (211-911) Vitamin D 25-Hydroxy 29.0 ng/mL (30.0-100) Thyroid Stimulating Hormone (TSH) 2.29 uIU/mL (0.55-4.78) Other Laboratory Tests 04/20/25 05:23 Brief Hx & Hospital Course: Ragini Gaytan is a 60-year-old female with past medical history of hypertension, type 2 diabetes, dyslipidemia. The patient presented to the [facility] ED with the chief complaint of acute chest pain. Patient reports that the chest pain is located in the right side of the chest radiating to the right shoulder with inability to abduct the right arm above 45 degree angle. Patient also reports associated shortness of breaths that started after the chest pain. Patient stated chest pain has been going on for the past month and that comes and goes even at rest. Patient rates the pain as 10/10 on the pain scale and described the as a pressure type of pain in the right side of the chest and occasionally burning sensation as well. Initial labs were grossly unremarkable except for troponins which were slightly elevated and blood glucose was elevated as well. EKG on admission showed normal sinus rhythm with no ST segment elevation or depression and no T-wave abnormalities. Chest x-ray was grossly unremarkable with no evidence of clear consolidations at this time. Right shoulder x-ray showed no evidence of fracture or dislocation at this time. Upon my examination, there is reproducible pain to palpation in the right side of the chest and inability to raise right arm against gravity. We will order echocardiogram and follow-up closely with the results. We will also order MRI of the right shoulder to rule out any possible rotator cuff tear/tendinopathy. Patient was started on a loading dose of aspirin, blood pressure medication with lisinopril 10 mg daily and sliding scale insulin for blood glucose control. Patient was admitted for further assessment and management. Past medical history: Hypertension, type 2 diabetes, dyslipidemia Surgical history: Cholecystectomy Home medications: None, states she stopped all medications non time ago Social history: Denies smoking, alcohol intake or any drug consumption. Lives: with [facility] course: On 04/19/25, the patient was examined and evaluated at bedside, the patient reports she is has right chest pain, irradiated to the right shoulder 09/23. VS, chart and labs were reviewed. Troponins are trending down to 42. The MRI of right shoulder showed: Glenohumeral joint: There is no fracture or bone marrow edema. Alignment is maintained. High-grade articular cartilage loss is present in the humeral head. There is glenohumeral joint effusion without synovitis. Acromioclavicular joint: The acromioclavicular joint is narrowed with capsular hypertrophy. Type 1 acromion noted. Rotator cuff and bursae: There is a full-thickness, full width tear supraspinatus with retraction of the tendon to the myotendinous junction. There is severe infraspinatus tendinosis and interstitial tear near the myotendinous junction. Moderate subscapularis tendinosis is noted. Teres minor tendon appears to be intact. There is no regional muscle atrophy. Fluid decompresses into the subacromial subdeltoid bursa from the glenohumeral joint through the full-thickness rotator cuff tear. There is mild decreased bulk in the supraspinatus muscle. Biceps tendon and glenoid labrum: The long head biceps tendon is torn and displaced from the bicipital groove with fluid in the bicipital groove.The labrum is completely degenerated and chronically torn. A orthopedic consult was placed. The pain is managed with analgesia, cold pack and arm sling. On 04/20/25, the patient was examined and evaluated at bedside, VS, chart and labs were reviewed. The patient reports improvement of right chest pain after analgesia, cold pack and arm sling. Orthopedics is onboard they recommended non surgical management at this time, but they recommended an intra capsular costicosteroid injection and follow up as an out patient. The patient is being discharge today. The patient will follow up with orthopedics in 1 week, with cardiology in one week. The patient does not has a PCP establish but she will follow up with D/C clinic on Friday PM clinic with Dr. Oquendo. ROS: Constitutional: No: Fever, Chills, Sweats, Weakness, Malaise, Other Eyes: No: Pain, Vision change, Conjunctivae inflammation, Eyelid inflammation, Other, Redness ENT: No: Ear pain, Ear discharge, Nose pain, Nose discharge, Nose congestion, Mouth pain, Mouth swelling, Throat pain, Throat swelling, Other Respiratory: No: Cough, Dry, SOB with excertion, Wheezing, Hemoptysis, Sputum, Wheezing, Other Cardiovascular: Chest Pain resolved Right-sided chest pain and inability to elevate right shoulder; No: Palpitations, Orthopnea, Paroxysmal Noc. Dyspnea, Edema, Lt Headedness, Other Gastrointestinal: No: Nausea, Vomiting, Abdominal Pain, Diarrhea, Constipation, Melena, Hematochezia, Other Genitourinary: No Dysuria, No Frequency, No Incontinence, No Hematuria, No Retention, No Other Musculoskeletal: Right shoulder pain, inability to abduct the arm above the head. No: neck pain, back pain, hand pain, leg pain, foot pain Skin: No: Rash, Lesions, Jaundice, Bruising, Other Neurological: No: Weakness, Numbness, Incoordination, Change in speech, Confusion, Seizures, Other Allergies: no known allergies. Examination General Appearance: Alert, Oriented X3, Cooperative, No acute distress HEENT: Atraumatic, PERRLA, EOMI, Mucous membr. moist/pink Respiratory: Clear to auscultation, Normal air movement Cardiovascular: Regular rate, Normal S1, Normal S2, No murmurs. Pain on palpation of right chest area. Abdominal: Normal bowel sounds, Soft, No tenderness, No hepatospenomegaly, No masses Extremities: Right arm: edema over right shoulder, tender to palpation, ROM limited by pain, empty can test positive. Patient cannot abduct or elevate the right arm more than 90 degrees. No clubbing, No cyanosis, Normal pulses. Skin: No rashes, No breakdown, No significant lesion Neuro: Normal gait, Normal speech, Strength at 5/5 X4 ext, Normal tone, Sensation intact, Cranial nerves 3-12 NL, Reflexes 2+ Psych/Mental Status: Mental status NL, Mood NL Consults/Reason for consult Cardiology: ACS NSTEMI type 2 Orthopedics: Rotator cuff injury Operations or Procedures PROCEDURE(s): CXR1 - CHEST XRAY 1 VIEW REASON: ORDER NUMBER(s): [id number], ACCESSION NUMBER(s): [id number] CHEST RADIOGRAPH Indication: cp Technique: Single frontal view of the chest was obtained Comparison: None FINDINGS: Lines and Tubes: None Lungs: No focal consolidation. Pleura: No effusion. No pneumothorax. Cardiomediastinal contours: Unremarkable Bones: No acute osseous abnormality. IMPRESSION: 1. No acute cardiopulmonary disease. EDURE(s): RSHD2 - R SHOULDER 2+ VIEW XRAY REASON: SHOULDER PAIN ORDER NUMBER(s): [id number], ACCESSION NUMBER(s): [id number] CLINICAL INDICATION: SHOULDER PAIN TECHNIQUE: 3 radiographic views of the right shoulder were obtained. Comparison: None FINDINGS/IMPRESSION: No fracture or dislocation. No radiopaque foreign bodies No soft tissue calcifications. EDURE(s): CX2CT - CHEST WITHOUT CONTRAST REASON: R CHEST WALL/SHOULDER PAIN ORDER NUMBER(s): [id number], ACCESSION NUMBER(s): [id number] EXAM: CT CHEST WITHOUT CONTRAST INDICATION: R CHEST WALL/SHOULDER PAIN TECHNIQUE: Noncontrast axial images of the chest have been obtained along with coronal and sagittal reformatted images. All CT scans at this facility use dose modulation, iterative reconstruction, and/or weight based dosing when appropriate to reduce radiation dose to as low as reasonably achievable. COMPARISON: XY CHEST XRAY 1 VIEW on DOS: 04/18/25 FINDINGS: LOWER NECK: Unremarkable LYMPH NODES/MEDIASTINUM: No abnormal lymph nodes by CT size criteria CARDIOVASCULAR: Normal cardiac size. No pericardial effusion. No aneurysmal dilatation of the great vessels. No significant coronary artery calcifications. UPPER ABDOMEN: Benign-appearing cysts of the liver with the largest measuring up to 7.2 cm. Imaging finding may be related to hepatic versus biliary cysts. Gallbladder is surgically absent. MUSCULOSKELETAL: No acute fracture or aggressive focal osseous lesion. CHEST WALL: Unremarkable. LUNG PARENCHYMA/PLEURAL SPACE: No pleural effusion or pneumothorax. No consolidation, suspicious focal airspace opacity, or suspicious nodules.benign calcific granulomas IMPRESSION: 1. No CT evidence of an acute intrathoracic process. tinnitus CT evidence of an acute rib fracture. No definitive visualized right shoulder effusion. 2. Benign-appearing cysts of the liver with the largest measuring up to 7.2 cm. Imaging finding may be related to hepatic versus biliary cysts. Consider further evaluation with nonemergent MRI of the liver if clinically indicated EDURE(s): MUES - RT SHOULDER WITHOUT REASON: r/o possible rotator cuff tear/tendinopathy ORDER NUMBER(s): [id number], ACCESSION NUMBER(s): [id number] CLINICAL INDICATION: r/o possible rotator cuff tear/tendinopathy COMPARISON: XY R SHOULDER 2+ VIEW XRAY on DOS: 04/18/25 TECHNIQUE: Multiplanar, multisequence MRI of the right shoulder was performed without contrast. Contrast: None FINDINGS: Motion artifact limits evaluation. Glenohumeral joint: There is no fracture or bone marrow edema. Alignment is maintained. High-grade articular cartilage loss is present in the humeral head. There is glenohumeral joint effusion without synovitis. Acromioclavicular joint: The acromioclavicular joint is narrowed with capsular hypertrophy. Type 1 acromion noted. Rotator cuff and bursae: There is a full-thickness, full width tear supraspinatus with retraction of the tendon to the myotendinous junction. There is severe infraspinatus tendinosis and interstitial tear near the myotendinous junction. Moderate subscapularis tendinosis is noted. Teres minor tendon appears to be intact. There is no regional muscle atrophy. Fluid decompresses into the subacromial subdeltoid bursa from the glenohumeral joint through the full- thickness rotator cuff tear. There is mild decreased bulk in the supraspinatus muscle. Biceps tendon and glenoid labrum: The long head biceps tendon is torn and displaced from the bicipital groove with fluid in the bicipital groove. The labrum is completely degenerated and chronically torn. IMPRESSION: 1. Motion degraded study. 2. Full-thickness full width supraspinatus tear with retraction of the tendon to the myotendinous junction in the right shoulder. Mild decreased supraspinatus muscle bulk. 3. Severe infraspinatus tendinosis and interstitial tear near the myotendinous junction. 4. Moderate subscapularis tendinosis. 5. Tear of the long head biceps tendon with displacement from the bicipital groove. 6. Glenohumeral and acromioclavicular joint arthrosis. HS:Y Condition at Discharge: Stable Final Diagnosis/Problems List #Hypertensive emergency #Acute chest pain, due to ACS NSTEMI type 2 #Right acute rotator cuff injury with supraspinatus tear #Chronic hypertensive heart disease with possible systolic/diastolic failure #DM type 2 with hyperglycemia #Chronic dyslipidemia #Acute on chronic GERD Discharge Disposition: Home SNF Discharge Will this Physician continue t: No Discharge Instruct/Medications Diet: Consistent carbohydrate, Cardiac 2g Na,low cholest Activity: Light activity Activity comment: Sling for right arm. Follow Up/Referral: F/U with D/C clinic with Dr. Oquendo PM clinic Friday F/U with orthopedics in 1 week. F/U with cardiology in 1 week Medications: Lisinopril 10mg po daily Metforming 1000 BID Ibuprofen 800 mg BID Cefdinir 300mg po BID for 7 days Scheduled Aspirin (Aspirin Low Dose), 1 TAB PO DAILY Atorvastatin Calcium (Atorvastatin Calcium), 1 TAB PO QPM Cefdinir (Cefdinir), 1 CAP PO BID Ibuprofen Micronized (Ibuprofen), 800 MG PO TID Lisinopril (Lisinopril), 10 MG PO DAILY Metformin Hydrochloride (Metformin Hcl Er), 1 TAB PO BID Pantoprazole Sodium Sesquihydr (Pantoprazole Sodium), 40 MG PO DAILY Durable Medical Equipment Blood Glucose Monitoring Suppl (D-Care Glucometer Kit/Glu W/Device), KIT XX TID, (DME) Lancets (Freestyle Lancets), AC XX TID, (DME) Discharge Statement: "Patient was advised to return to the ER or call 911 if any headaches, dizziness, shortness of breath, chest pain, abdominal pain, bleeding, fevers, or worsening of medical condition. Patient was counseled about treatment plan, medications, possible side effects, patientverbalized understanding. All questions were answered to the best of my ability. This discharge took greater then 30 minutes in planning, reviewing documentation, counseling the patient, and discussing with other team members." ASSESSMENT ASSESSMENT Assessment #Hypertensive emergency #Acute chest pain, due to ACS NSTEMI type 2 #Right acute rotator cuff injury with supraspinatus tear #Chronic hypertensive heart disease with possible systolic/diastolic failure #DM type 2 with hyperglycemia #Chronic dyslipidemia #Acute on chronic GERD Goals of care discussed with the patient for more than 35 minutes Code Status: Full code PCP: Not established, the patient follow up with D/C clinic with Dr. Sal Case discussed with Dr. Herrera Date of Service: Apr 20, 2025 Billing Provider: SHAGGY HERRERA MD Common Visit Codes: 38510-CWV/OBS DISCH DAY >30min CLARIBEL CAAL RESIDENT Apr 20, 2025 14:50
[2025-04-20] MEDS: POLYETHYLENE GLYCOL 17 GM PWDR PO ONE (23:28)
[2025-04-21 01:00] VITALS: BP 161/86; PULSE 61; RESP 18; TEMP 98; O2SAT 99
[2025-04-21] MEDS: hydrALAZINE HCL 20 MG/ML VL IV ONE (02:04)
[2025-04-21 03:04] VITALS: BP 136/67; PULSE 62
[2025-04-21 05:00] VITALS: BP 144/82; PULSE 68; RESP 18; TEMP 97.7; O2SAT 99
[2025-04-21 08:35] VITALS: BP 146/84; PULSE 65; RESP 20; TEMP 98.7; O2SAT 97
--- NOTE | 2025-04-21 11:02 | DVHPN2 ---
Progress Note Progress Note S: Subjective see previous consult note for detail, Today denies any improvement in right shoulder pain with oral pain meds as inpatient. She has a history of hyperglycemia, most recent A1c 7.9. Previously surgical treatment was discussed as outpatient , today patient wants to proceed with trial of CSI right shoulder. She understands risks and complications of CSI to include but not limited to hyperglycemia like s/s, infection, worsening of pain or tear and others. Pt states oral meds has not helped her with pain and she would like CSI trial today if possible. She does understands that if she gets CSI injection today she may not be able to get surgery for next 3 months and remains amenable to trial of CSI today. The patient oral consented to proceed. O: Objective General: Alert, oriented 3, in no acute distress. Right Shoulder Exam: Tenderness to palpation over the anterior and lateral shoulder. Painful and limited range of motion in abduction and flexion. Strength reduced secondary to pain. No erythema, swelling, or warmth. MRI Findings: Complete rotator cuff tear with tendon retraction. Chronic degenerative changes of glenohumeral and AC joints. Mild subacromial/subdeltoid bursitis. A: Assessment 1. Right shoulder complete rotator cuff tear with retraction chronic with acut e exacerbation. 2. Hyperglycemia (A1c 7.9) monitor for steroid-induced increase in blood glucose. 3. Sinus-like symptoms no evidence of infection currently, will monitor. P: Plan Procedure performed today: After informed consent and sterile preparation, the right shoulder subacromial space was injected using a posterior approach with: 0.5 mL of Depo-Medrol (40 mg/mL) 4 mL of 1% lidocaine without epinephrine The injection was well tolerated without immediate complications. A sterile dressing applied. Post-procedure instructions: Ice application 1520 minutes as needed. Avoid strenuous shoulder activity for 48 hours. Monitor blood glucose for 57 days post-injection. Observe for infection or worsening sinus symptoms; return to ER if fever, redness, swelling, or hyperglycemia occurs. Follow-up: Return in one week for reevaluation and symptom monitoring. All questions answered; patient verbalized understanding and agreement with the plan. Plan discussed with: Patient, Other (bedside nurse) Visit Coding Surgery Date of Service if different f: Apr 21, 2025 Billing Provider: FIORELLA NORTH PAC Surgery Visit Codes: [id number] - INP CONSULT <55 MIN FIORELLA NORTH PAC Apr 21, 2025 11:02
[2025-04-21 11:26] VITALS: BP 146/84; PULSE 65; RESP 20; TEMP 98.7; O2SAT 97
[2025-04-21 12:31] VITALS: BP 138/89; PULSE 64; RESP 18; TEMP 98.3; O2SAT 96
--- NOTE | 2025-04-21 22:46 | DVHPNRES ---
Progress Note Date Seen: Apr 21, 2025 Resident Creating Document: CLARIBEL CAAL RESIDENT Has the PT tested + for MRSA If YES, has PT been informed?: No Medical Necessity Reason Pt with a Central, PICC or Fol: No Subjective Review of Systems Ragini Gaytan is a 60-year-old female with past medical history of hypertension, type 2 diabetes, dyslipidemia. The patient presented to the [facility] ED with the chief complaint of acute chest pain. Patient reports that the chest pain is located in the right side of the chest radiating to the right shoulder with inability to abduct the right arm above 45 degree angle. Patient also reports associated shortness of breaths that started after the chest pain. Patient stated chest pain has been going on for the past month and that comes and goes even at rest. Patient rates the pain as 10/10 on the pain scale and described the as a pressure type of pain in the right side of the chest and occasionally burning sensation as well. Initial labs were grossly unremarkable except for troponins which were slightly elevated and blood glucose was elevated as well. EKG on admission showed normal sinus rhythm with no ST segment elevation or depression and no T-wave abnormalities. Chest x-ray was grossly unremarkable with no evidence of clear consolidations at this time. Right shoulder x-ray showed no evidence of fracture or dislocation at this time. Upon my examination, there is reproducible pain to palpation in the right side of the chest and inability to raise right arm against gravity. We will order echocardiogram and follow-up closely with the results. We will also order MRI of the right shoulder to rule out any possible rotator cuff tear/tendinopathy. Patient was started on a loading dose of aspirin, blood pressure medication with lisinopril 10 mg daily and sliding scale insulin for blood glucose control. Patient was admitted for further assessment and management. Past medical history: Hypertension, type 2 diabetes, dyslipidemia Surgical history: Cholecystectomy Home medications: None, states she stopped all medications non time ago Social history: Denies smoking, alcohol intake or any drug consumption. Lives: with Family Hospital course: On 04/19/25, the patient was examined and evaluated at bedside, the patient reports she is has right chest pain, irradiated to the right shoulder 4/10. VS, chart and labs were reviewed. Troponins are trending down to 42. The MRI of right shoulder showed: Glenohumeral joint: There is no fracture or bone marrow edema. Alignment is maintained. High-grade articular cartilage loss is present in the humeral head. There is glenohumeral joint effusion without synovitis. Acromioclavicular joint: The acromioclavicular joint is narrowed with capsular hypertrophy. Type 1 acromion noted. Rotator cuff and bursae: There is a full-thickness, full width tear supraspinatus with retraction of the tendon to the myotendinous junction. There is severe infraspinatus tendinosis and interstitial tear near the myotendinous junction. Moderate subscapularis tendinosis is noted. Teres minor tendon appears to be intact. There is no regional muscle atrophy. Fluid decompresses into the subacromial subdeltoid bursa from the glenohumeral joint through the full-thickness rotator cuff tear. There is mild decreased bulk in the supraspinatus muscle. Biceps tendon and glenoid labrum: The long head biceps tendon is torn and displaced from the bicipital groove with fluid in the bicipital groove.The labrum is completely degenerated and chronically torn. A orthopedic consult was placed. The pain is managed with analgesia, cold pack and arm sling. On 04/20/25, the patient was examined and evaluated at bedside, VS, chart and labs were reviewed. The patient reports improvement of right chest pain after analgesia, cold pack and arm sling. Orthopedics is onboard they recommended non surgical management at this time, but they recommended an intra capsular costicosteroid injection and follow up as an out patient. The patient is being discharge today.The patient will follow up with orthopedics in 1 week, with cardiology in one week. The patient does not has a PCP establish but she will follow up with D/C clinic on Friday clinic with . On 04/21/25, the patient was examined and evaluated at bedside, VS, chart and labs were reviewed. The patient reports improvement of right chest pain after analgesia, cold pack and arm sling. Orthopedics is onboard they administer today an intra capsular costicosteroid injection. The patient will go home today. The patient will follow up with orthopedics in 1 week, with cardiology in one week. The patient does not has a PCP establish but she will follow up with D/C clinic on Friday clinic with Dr. Oquendo. ROS: Constitutional: No: Fever, Chills, Sweats, Weakness, Malaise, Other Eyes: No: Pain, Vision change, Conjunctivae inflammation, Eyelid inflammation, Other, Redness ENT: No: Ear pain, Ear discharge, Nose pain, Nose discharge, Nose congestion, Mouth pain, Mouth swelling, Throat pain, Throat swelling, Other Respiratory: No: Cough, Dry, SOB with excertion, Wheezing, Hemoptysis, Sputum, Wheezing, Other Cardiovascular: Chest Pain resolved Right-sided chest pain and inability to elevate right shoulder; No: Palpitations, Orthopnea, Paroxysmal Noc. Dyspnea, Edema, Lt Headedness, Other Gastrointestinal: No: Nausea, Vomiting, Abdominal Pain, Diarrhea, Constipation, Melena, Hematochezia, Other Genitourinary: No Dysuria, No Frequency, No Incontinence, No Hematuria, No Retention, No Other Musculoskeletal: Right shoulder pain, inability to abduct the arm above the head. No: neck pain, back pain, hand pain, leg pain, foot pain Skin: No: Rash, Lesions, Jaundice, Bruising, Other Neurological: No: Weakness, Numbness, Incoordination, Change in speech, Confusion, Seizures, Other Allergies: no known allergies. Objective vital signs Vital Sign Date Time Temp Pulse Resp B/P (MAP) Pulse Ox O2 Delivery O2 Flow Rate FiO2 04/21/25 12:31 98.3 64 18 138/89 (105) 96 98.3 04/21/25 08:00 Room Air* 0 21 Total Intake and Output 04/20/25 04/20/25 04/21/25 15:00 23:00 07:00 Intake Total 50 ml 650 ml 1000 ml Balance 50 ml 650 ml 1000 ml Examination General Appearance: Alert, Oriented X3, Cooperative, No acute distress HEENT: Atraumatic, PERRLA, EOMI, Mucous membr. moist/pink Respiratory: Clear to auscultation, Normal air movement Cardiovascular: Regular rate, Normal S1, Normal S2, No murmurs. Pain on palpation of right chest area. Abdominal: Normal bowel sounds, Soft, No tenderness, No hepatospenomegaly, No masses Extremities: Right arm: edema over right shoulder, tender to palpation, ROM limited by pain, empty can test positive. Patient cannot abduct or elevate the right arm more than 90 degrees. No clubbing, No cyanosis, Normal pulses. Skin: No rashes, No breakdown, No significant lesion Neuro: Normal gait, Normal speech, Strength at 5/5 X4 ext, Normal tone, Sensation intact, Cranial nerves 3-12 NL, Reflexes 2+ Psych/Mental Status: Mental status NL, Mood NL laboratory and microbiology Laboratory Tests 04/20/25 05:23 Test 04/20/25 05:23 Range/Units Serum Glucose 163 H 74-106 mg/dL Problem List/Assessment/Plan Problem List/Assessment/Plan #Hypertensive emergency #Acute chest pain, R/O ACS #Possible musculoskeletal type of pain #NSTEMI likely type 2 likely due to above -EKG showed normal sinus rhythm with no ST segment elevation or depression or T- waves abnormalities Troponins were slightly elevated ECHO: EF: 65% Continue lisinopril 10 mg daily Cardiac consult: completed. #Right arm pain due to acute rotator cuff injury, supraspinatus tear. -MRI showed:There is severe infraspinatus tendinosis and interstitial tear near the myotendinous junction. 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 Carafate 1 g t.i.d. DVT prophylaxis: Lovenox subcutaneous Diet: Cardiac diet Goals of care discussed with the patient for more than 35 minutes Code Status: Full code PCP: Dr. Negra Vallecillo Case discussed with Dr. Blanc Plan discussed with: Patient My Orders My Orders Orders - CLARIBEL CAAL Procedure Category Date Status Time Discharge DISCHARGE 04/21/25 Transmitted 11:24 Date of Service: Apr 21, 2025 Billing Provider: SHAGGY GRESHAM MD Common Visit Codes: [id number] INP/OBS CARE(HIGH) CLARIBEL CAAL RESIDENT Apr 21, 2025 22:46
== END 2025-04-21 12:53 | disposition home or self-care (01) | DRG 190 ==
LOC: ER 13:02 → OVERFLOW 15:31 → WEST WING 17:45
PROVIDERS: ADMIT Internal Medicine; ATTEND Internal Medicine
DX: I24.9 Acute ischemic heart disease, unspecified (principal); I21.A1 Myocardial infarction type 2; I16.1 Hypertensive emergency; E11.65 Type 2 diabetes mellitus with hyperglycemia; I11.0 Hypertensive heart disease with heart failure; I50.42 Chronic combined systolic (congestive) and diastolic (congestive) heart failure; M19.011 Primary osteoarthritis, right shoulder; I16.9 Hypertensive crisis, unspecified; S46.011A Strain of muscle(s) and tendon(s) of the rotator cuff of right shoulder, initial encounter; E78.5 Hyperlipidemia, unspecified; K21.9 Gastro-esophageal reflux disease without esophagitis; Z90.49 Acquired absence of other specified parts of digestive tract; Z79.4 Long term (current) use of insulin; Y92.89 Other specified places as the place of occurrence of the external cause; Z79.82 Long term (current) use of aspirin
CPT/HCPCS: 36415; 71045; 71250; 73030; 73221; 80048; 80053; 80061; 80307; 81001; 82306; 82607; 82962; 83036; 84443; 84484; 85025; 85379; 93005; 93306; 99291; G0378; J2470